=== PATIENT | male | born 1970 | race African-American/Black ===

== ENCOUNTER 2016-05-14 18:30 | Emergency (ER) | payer OTHER ==
--- NOTE | ~2016-05-14 | CR72 ---
[facility]. [facility] A Service of [facility] & [facility] RADIOLOGY TEXT RESULTS PATIENT: RAPHAEL JASSO LOCATION: SED : 72 UNIT #: [id number] AGE: [address]: Lani Owen SEX: M ORDER DR: [id number] [address] [address] [id number] E MR#: [id number] Acc #: [id number] NAME: RAPHAEL JASSO : 1970 SEX: M STUDY DATE/TIME: 05/14/2016 18:38 UNIT: SED ROOM: STUDY DESCRIPTION: CR Chest Single View Portable Attending Physician: Lani Owen Pa-C Ordering Physician: Physician Non-Staff Primary Care Physician: Sujatha Yu A.P.R.N. MEDICAL IMAGING REPORT This report is preliminary unless electronic signature is present. EXAM Portable chest 05/14/2016 HISTORY Cough and sore throat beginning last night. Smoking history for over 30 years. FINDINGS There is mild cardiac enlargement. The lungs are clear. There are no pleural effusions. IMPRESSION Cardiomegaly. No active pulmonary disease. Dictated by... Marco Antonio Martinez M.D. THIS IS AN ELECTRONICALLY VERIFIED REPORT Marco Antonio Martinez M.D. at 05/15/2016 2:14 PM KRT/cezar TD: 05/15/2016 09:17 JOB #: [id number] MEDICAL IMAGING REPORT
[~2016-05-14 18:30] MED LIST: ALBUTEROL17 GM INH; AMOXICILLIN500 M1 PO; BACITRACIN15 GM TP; BACLOFEN10 MG PO; BACTRIM DS TABL1 TA1 PO; BACTRIM DS TABL1 TAB PO; BACTROBAN15 GM TOP; CIPRO PO; DICLOFENAC PO; FLAGYL PO; FLEXERIL PO; FLEXERIL10 M1 PO; FLEXERIL10 MG PO; IBUPROFEN PO; IBUPROFEN800 MG PO; KEFLEX PO; LORTAB 10-5001 EACH PO; LORTAB 7.5-5001 TAB PO; LORTAB 7.51 TAB 7.5/ PO; MEDROL4 MG/DOSE- PO; NAPROSYN500 MG PO; NAPROXEN PO; NO MEDICATIONS; PERCOCET 10/3251 TAB PO; PERCOCET PO; PERCOCET5/325 PO; ROBAXIN500 MG PO; TOPAMAX25 MG PO; TYLENOL #3 PO; VIBRAMYCIN100 M1 PO; VICODIN 5/500 T1 TAB PO; VICODIN PO; VOLTAREN75 MG PO; ZESTRIL10 MG PO
== END 2016-05-14 19:17 | disposition home or self-care (01) ==
LOC: SED 18:30
DX: J06.9 Acute upper respiratory infection, unspecified (principal); I10 Essential (primary) hypertension; F17.210 Nicotine dependence, cigarettes, uncomplicated
CPT/HCPCS: 71010; 87651; 99282

== ENCOUNTER 2016-11-21 12:12 | Emergency (ER) | payer OTHER ==
--- NOTE | ~2016-11-21 | CR124 ---
[facility] A Service of [facility] & [facility] RADIOLOGY TEXT RESULTS PATIENT: RAPHAEL JASSO LOCATION: SED : 72 UNIT #: [id number] AGE: [address]: Bairon Nettles SEX: M ORDER DR: [id number] [place] [address] [id number] E MR#: [id number] Acc #: [id number] NAME: RAPHAEL JASSO : 1970 SEX: M STUDY DATE/TIME: 11/21/2016 13:09 UNIT: SED ROOM: STUDY DESCRIPTION: CR Foot 2 Views Rt Attending Physician: Bairon Nettles M.D. Ordering Physician: Physician Non-Staff Primary Care Physician: Sujatha Yu A.P.R.N. MEDICAL IMAGING REPORT This report is preliminary unless electronic signature is present. EXAM Right foot 11/21 INDICATION Foot pain for a few weeks with big toe pain and swelling. No trauma. FINDINGS AP and lateral views of the right foot were obtained. No acute fracture or malalignment is seen. The great toe is normal. The soft tissues are normal. There is some degenerative spurring in the midfoot. IMPRESSION Degenerative spurring in the midfoot. Otherwise, negative right foot. The great toe is normal. Dictated by... Jaden Leigh Jr., M.D. THIS IS AN ELECTRONICALLY VERIFIED REPORT Jaden Leigh Jr., M.D. at 11/22/2016 4:38 PM KASI/abbie TD: 11/21/2016 15:00 JOB #: [id number] MEDICAL IMAGING REPORT Page 1 of 1
== END 2016-11-21 14:20 | disposition home or self-care (01) ==
LOC: SED 12:12
DX: M21.611 Bunion of right foot (principal); I10 Essential (primary) hypertension
CPT/HCPCS: 29405; 73620; 99283